=== PATIENT | male | born 1975 | race Caucasian/White ===

== ENCOUNTER 2024-08-07 19:44 | Inpatient (IN) | payer BC ==
[2024-08-07 21:06] LABS: BASO % 0.3 % (0-2.0); EOS % 1.1 % (0-4.5); HEMOGLOBIN 16.3 GM/dL (11.7-16.9); LYMPH % 18.5 % (8-40); MCH 28.9 pg (25.7-33.7); MCHC 33.9 g/dl (32.0-35.9); MEAN CELL VOLUME 85.3 fl (80-96); MEAN PLT VOLUME 9.1 fl (7.5-11.1); MONO % 8.4 % (3.8-10.2); NEUT % 71.7 % (42.8-82.8); PLATELET COUNT 197 10^3/uL (134-434); RBC 5.63 M/mm3 (4.00-5.60); RDW 13.6 % (11.9-15.9); WHITE BLOOD COUNT 7.5 K/mm3 (4.0-10.0)
[2024-08-07 21:13] LABS: INR 1.05 (0.83-1.09); PROTHROMBIN TIME (PATIENT) 11.9 SEC (9.7-13.0)
[2024-08-07 21:15] LABS: ACTIVATED PTT 30.9 SECONDS (25.2-36.5)
[2024-08-07 21:28] LABS: POTASSIUM 4.2 mmol/L (3.5-5.1)
[2024-08-07 21:30] LABS: CALCIUM 9.2 mg/dL (8.5-10.1)
[2024-08-07 21:31] LABS: ALBUMIN 4.2 g/dl (3.4-5.0); BLOOD UREA NITROGEN 13.6 mg/dL (7-18); MAGNESIUM 2.5 mg/dL (1.8-2.4)
[2024-08-07 21:34] LABS: CREATININE 0.9 mg/dL (0.55-1.3)
[2024-08-07 21:35] LABS: BILIRUBIN,TOTAL 0.4 mg/dL (0.2-1); TOT PROT 8.1 g/dl (6.4-8.2)
[2024-08-07 21:57] LABS: EPI CELLS 5 /uL (0-25.1); HYALINE CASTS 1 /uL (0-3.1); URINE APPEARANCE CLEAR; URINE BACTERIA 16 /uL (0-1359); URINE BILIRUBIN NEGATIVE (NEGATIVE); URINE COLOR YELLOW; URINE GLUCOSE (UA) 3+ (NEGATIVE); URINE KETONE TRACE (NEGATIVE); URINE LEUK ESTERASE NEGATIVE (NEGATIVE); URINE NITRITE NEGATIVE (NEGATIVE); URINE PROTEIN 1+ (NEGATIVE); URINE RBC 26 /uL (0-23.9); URINE UROBILINOGEN 0.2 mg/dL (0.2-1.0); URINE WBC 15 /uL (0-25.8)
[2024-08-07 22:27] LABS: LACTIC ACID 3.2 mmol/L (0.4-2.0)
[2024-08-07] MEDS: SODIUM CHLORIDE 0.9% 500 ML INFUS.BAG IV ONE (22:33)
[2024-08-07] MEDS ORDERED: LORazepam 2 MG/ML SDV VIAL ONE ×2 (22:58→23:00)
[2024-08-07] MEDS ORDERED: levETIRAcetam 500 MG/5 ML INJECTION VIAL IVPB ONE (23:02)
[2024-08-07] MEDS: levETIRAcetam 500 MG/5 ML INJECTION VIAL IVPB ONE (23:22)
[2024-08-08] MEDS ORDERED: LORazepam 2 MG/ML SDV VIAL IVPUSH PRN (01:58)
[2024-08-08 03:44] VITALS: BMI 37.3
[2024-08-08] MEDS: guaiFENesin 200 MG/10 ML 10 ML UNIT-DOSE CUPS PO ONE (04:49)
[2024-08-08] MEDS: INSULIN ASPART SLIDING SCALE (NOVOLOG) 1 VIAL SQ SCH (07:05)
[2024-08-08 08:24] LABS: BASO % 0.5 % (0-2.0); EOS % 1.4 % (0-4.5); HEMATOCRIT 41.3 % (35.4-49); HEMOGLOBIN 13.8 GM/dL (11.7-16.9); LYMPH % 34.5 % (8-40); MCH 28.6 pg (25.7-33.7); MCHC 33.3 g/dl (32.0-35.9); MEAN CELL VOLUME 85.8 fl (80-96); MEAN PLT VOLUME 9.6 fl (7.5-11.1); MONO % 11.5 % (3.8-10.2); NEUT % 52.1 % (42.8-82.8); PLATELET COUNT 172 10^3/uL (134-434); RBC 4.81 M/mm3 (4.00-5.60); RDW 13.6 % (11.9-15.9); WHITE BLOOD COUNT 6.6 K/mm3 (4.0-10.0)
[2024-08-08 09:33] LABS: POTASSIUM 3.9 mmol/L (3.5-5.1)
[2024-08-08 09:39] LABS: CALCIUM 8.2 mg/dL (8.5-10.1)
[2024-08-08 09:40] LABS: ALBUMIN 3.4 g/dl (3.4-5.0); BLOOD UREA NITROGEN 14.1 mg/dL (7-18); MAGNESIUM 2.3 mg/dL (1.8-2.4)
[2024-08-08 09:42] LABS: BILIRUBIN,TOTAL 0.4 mg/dL (0.2-1); TOT PROT 6.6 g/dl (6.4-8.2)
[2024-08-08 09:43] LABS: CREATININE 0.7 mg/dL (0.55-1.3); PHOSPHOROUS 3.3 mg/dL (2.5-4.9)
[2024-08-08] MEDS ORDERED: ENOXAPARIN NA (PORCINE) 40 MG/0.4 ML DISP.SYRIN SQ SCH (10:00)
[2024-08-08 12:49] LABS: COCAINE, UR NEGATIVE (NEGATIVE); METHADONE, UR NEGATIVE (NEGATIVE); URINE AMPHETAMINES NEGATIVE (NEGATIVE); URINE BARBITURATES NEGATIVE (NEGATIVE); URINE BENZODIAZEPINES NEGATIVE (NEGATIVE)
[2024-08-08 12:50] LABS: OPIATES, URI NEGATIVE (NEGATIVE); PHENCYCLIDINE,URINE NEGATIVE (NEGATIVE)
[2024-08-08] MEDS: AZITHROMYCIN IVPB 500 MG/250 ML BAG IVPB SCH (14:11)
[2024-08-08] MEDS: methylPREDNISolone NA SUCC 40 MG/1 ML VIAL IVPUSH SCH (14:11)
[2024-08-08] MEDS: guaiFENesin/CODEINE 10 ML UNIT-DOSE CUPS PO PRN (14:16)
[2024-08-08] MEDS: ALBUTEROL SO4 2.5/IPRATROPIUM 0.5 INH SOL 3 ML VIAL.NEB. NEB SCH (16:02)
[2024-08-08] MEDS ORDERED: ALBUTEROL SO4 2.5/IPRATROPIUM 0.5 INH SOL 3 ML VIAL.NEB. NEB ONE (16:20)
[2024-08-08] MEDS: OSELTAMIVIR PHOSPHATE 75 MG CAPSULE PO SCH (17:56)
[2024-08-09 07:20] VITALS: RESP 18
[2024-08-09 15:59] VITALS: BP 119/82; PULSE 96; TEMP 97.7
== END 2024-08-09 17:00 | disposition home or self-care (01) | DRG 101 ==
LOC: JER 19:44 → JERBED 08-08 00:24 → J4W 08-08 04:44 → OBSVTOIN 08-08 15:18
PROVIDERS: ADMIT Internal Medicine; ATTEND Internal Medicine
DX: R56.9 Unspecified convulsions (principal); I10 Essential (primary) hypertension; E11.9 Type 2 diabetes mellitus without complications; E78.5 Hyperlipidemia, unspecified; R55 Syncope and collapse; J10.1 Influenza due to other identified influenza virus with other respiratory manifestations; E11.65 Type 2 diabetes mellitus with hyperglycemia; E66.9 Obesity, unspecified; Z68.37 Body mass index [BMI] 37.0-37.9, adult; R05.9 Cough, unspecified; G62.9 Polyneuropathy, unspecified; J20.9 Acute bronchitis, unspecified
CPT/HCPCS: 0241U-QW; 36415; 70450-TC; 70551-TC; 71045-TC-FY; 71250-TC; 80053; 80307; 81003; 82962; 83605; 83735; 84100; 84443; 84484; 85025; 85610; 85730; 86850; 86900; 86901; 87086; 93005; 93010; 94640; 99285-25; G0378